=== PATIENT | female | born 1985 | race Caucasian/White ===

== ENCOUNTER → 2017-04-11 | Outpatient (CLI) | payer OTHER ==
[~2017-04-11] MED LIST: FERR18TA; LABE100T23 PO; MTR600X PO; OXYC5TAB PO; PRENTAB26 PO
== END | disposition home or self-care (01) ==
LOC: C.PAPS 10:01
PROVIDERS: ATTEND Obstetrics & Gynecology
DX: Z12.4 Encounter for screening for malignant neoplasm of cervix (principal); Z11.51 Encounter for screening for human papillomavirus (HPV)

== ENCOUNTER → 2017-06-30 | Outpatient (CLI) | payer OTHER ==
[2017-06-30 17:47] LABS: HEMATOCRIT 38.7 % (37-47); HEMOGLOBIN 13.6 g/dL (12.0-16.0); MEAN CELL VOLUME 86.6 fL (80-100); MEAN CORPUSCULAR HEMOGLOBIN 30.4 pg (25-34); MEAN CORPUSCULAR HGB CONC 35.1 g/dl (32-36); MEAN PLATELET VOLUME 9.4 fL (7.4-10.4); PLATELET COUNT 177 K/uL (130-400); RED CELL DISTRIBUTION WIDTH CV 12.6 % (11.5-14.5); RED CELL DISTRIBUTION WIDTH SD 40.3 fL (36.4-46.3); WHITE BLOOD COUNT 5.11 K/uL (4.8-10.8)
[2017-06-30 18:04] LABS: ALBUMIN 4.2 gm/dl (3.4-5.0); BLOOD UREA NITROGEN 10 mg/dl (7-18); CARBON DIOXIDE 26 mmol/L (21-32); CREATININE 0.66 mg/dl (0.60-1.20); GLUCOSE 86 mg/dl (70-99); POTASSIUM 3.3 mmol/L (3.5-5.1); SODIUM 135 mmol/L (136-145)
[2017-06-30 18:05] LABS: PHOSPHORUS 3.1 mg/dl (2.5-4.9)
[2017-06-30 18:54] LABS: BASO ABS # 0.05 K/uL (0-0.2); EOS % 1.8 %; EOS ABS # 0.09 K/uL (0-0.5); IG# 0.01 K/uL (0.00-0.02); LYMPH % 38.4 %; LYMPH ABS # 1.96 K/uL (1.2-3.4); MONO % 16.4 %; MONO ABS # 0.84 K/uL (0.11-0.59); NEUT % 42.2 %; NEUT ABS # 2.16 K/uL (1.4-6.5)
[2017-06-30 19:42] LABS: MONOSPOT NEG (NEG)
== END | disposition home or self-care (01) ==
LOC: C.LAB1850 16:19
PROVIDERS: ATTEND Family Medicine Adult Medicine
DX: I10 Essential (primary) hypertension (principal); J02.9 Acute pharyngitis, unspecified

== ENCOUNTER 2019-03-31 09:57 | Inpatient (IN) ==
[~2019-03-31 09:57] MED LIST changes: +CITRIC ACID/SODIUM CITRATE 15 ML UDC PO SCH; -FERR18TA; -LABE100T23 PO; -MTR600X PO; -OXYC5TAB PO; -PRENTAB26 PO
[2019-03-31] MEDS ORDERED: LACTATED RINGER'S 1,000 ML IV SCH ×2 (10:15→11:15)
--- NOTE | 2019-03-31 10:26 | History & Physical Report ---
Date of Service March 31, 2019 Assessment & Plan (1) Breech presentation: (2) Normal labor: acitve labor. Plan repeat c/s. consent reviewed and signed. Proceed urgently. History of Present Illness Chief Complaint: contractions Primary Care Provider: Shannon Rosen PA-C Belkis is a 33yowf who presents to labor and delivery from the office where she was found to be in labor. she was a scheduled c/s for breech presentation tomorrow. On presentation to labor and delivery she had srom, mec seen. Was 4cm and -2 in the office. complicated by chtn. On labetolol and asa. Weekly monserrat and testing has been reassuring. Previous c/s for breech in 2016. Small septum noted on previous c/s. Patient had a thinner appearing artem on dating us. Was seen by m. Allergies Allergy/AdvReac Type Severity Reaction Status Date / Time No Known Drug Allergies Allergy Verified 03/31/19 09:37 Home Medications Home Medications Medication Instructions Recorded Confirmed Type azelastine 137 mcg (0.1 %) nasal 1 sprays INTRANASAL DAILY PRN #1 ml 09/11/18 03/31/19 History spray aerosol prenat.vits,aneta,ybb-fryx-cacxa 1 tab PO PM 09/11/18 03/31/19 History labetalol 100 mg tablet 50 mg PO BID #60 tab 11/05/18 03/31/19 Rx aspirin [Aspir-81] 81 mg PO PM 03/29/19 03/31/19 History fluticasone propionate 1 sprays INTRANASAL QAM 03/29/19 03/31/19 History Patient History Medical History Allergic rhinitis (Acute) History of spontaneous Hypertension Septate uterus (Acute) Surgical History H/O section (Resolved) Family History Mother Hypertension Essential hypertension Grandmother Type 2 diabetes mellitus Essential hypertension Grandfather Myocardial infarction Colon cancer Aunt Essential hypertension Breast cancer Social History (Updated 10/17/18 @ 15:28 by Marycruz A Sonia) Preferred Language: Kazakh Communication Ability: Effective Experienced Truck Driver Required: No Beliefs That Will Affect Care: None Current Living Situation: Spouse and Family Other Information That Helps Us Care for You: No Feels Safe at Home: Yes Safety Concerns: Feels Safe At This Time Smoking Status: Never smoker Do You Dip or Chew Tobacco: No ; Second Hand Exposure: No ( SMOKES NOT AROUND PATIENT) ; Tobacco Cessation Education Requested by Patient: No Hx Alcohol Use: No Hx Substance Use: No Review of Systems All systems reviewed & are unremarkable except as noted in HPI & below Physical Exam Constitutional: WD/WN, vitals as above Gastrointestinal (Abdomen): soft, gravid, nt Psychiatric: A+Ox3, euthymic affect Genitourinary: cx--4cm in the office toco--q 2 min efm--150s wtih mod variability, accels present, no decels bsus--breech Code Status & VTE Plan VTE Prophylaxis Plan VTE Prophylaxis will be ordered: Yes
--- NOTE | 2019-03-31 10:30 | Anesthesiology Consultation ---
Date of Service March 31, 2019 Assessment & Plan (1) Encounter for pre-operative examination: Chart Review Chart Review: Acceptable Risk for Surgery and Patient NOT seen in Pre Admission Testing Consults Requested none ASA [id number] Proposed Anesthesia Anesthesia Type: Spinal Risk / Benefits Reviewed With: PT / POA / Parent / Guardian, Accepts Plan and Informed Consent Obtained History Surgery Operation Date: 03/31/19 10:15 Proposed Procedures p Section in LD - Benita Nguyen MD, FACOG Operation Date: 04/01/19 07:30 Proposed Procedures p Section - Gary Alfaro MD Height/Weight Height: 5 ft 7 in Weight: 74.843 kg Allergies Allergy/AdvReac Type Severity Reaction Status Date / Time No Known Drug Allergies Allergy Verified 03/31/19 09:37 Medications Home Medications Medication Instructions Recorded Confirmed Last Taken azelastine 137 mcg (0.1 %) nasal 1 sprays INTRANASAL DAILY PRN #1 ml 09/11/18 03/31/19 Unknown spray aerosol prenat.vits,aneta,cff-vyce-ruwqx 1 tab PO PM 09/11/18 03/31/19 Unknown labetalol 100 mg tablet 50 mg PO BID #60 tab 11/05/18 03/31/19 Unknown aspirin [Aspir-81] 81 mg PO PM 03/29/19 03/31/19 Unknown fluticasone propionate 1 sprays INTRANASAL QAM 03/29/19 03/31/19 Unknown NPO Date Last Intake of Fluids: 03/31/19 Time Last Intake of Fluids: 10:27 Date Last Intake of Solids: 03/30/19 Time Last Intake of Solids: 19:30 Past Medical History Medical History Allergic rhinitis (Acute) History of spontaneous Hypertension Septate uterus (Acute) Exercise / Class Metabolic Activity II 4-5 Yardwork/Stairs/Walk up hill Negative for chest pain or shortness of breath. Past Family History Family History Mother Hypertension Essential hypertension Grandmother Type 2 diabetes mellitus Essential hypertension Grandfather Myocardial infarction Colon cancer Aunt Essential hypertension Breast cancer Past Surgical History Surgical History H/O section (Resolved) Past Anesthesia History No Hx of Anesthesia Complications History of PONV No Hx of PONV Social History Smoking Status: Never smoker Do You Dip or Chew Tobacco: No Hx Alcohol Use: No Hx Substance Use: No substance use type: does not use Review of Systems Patient denies history of abnormal bleeding or bleeding disorder. Patient denies active use of anticoagulants other than low dose aspirin. Patient denies numbness, tingling or weakness in lower extremities. Physical Exam Constitutional not obese (Vince uterus) ENMT Mouth: + small oral opening; no TMJ abnormality Thyromental Distance: > or= 3.5 Finger Breadths Mallampati Class: II Neck normal visual inspection; neck extension not limited Respiratory normal respiratory effort, lungs clear to auscultation normal respiratory effort Auscultation: lungs clear to auscultation bilaterally Cardiovascular Rate/Rhythm: regular rate and regular rhythm Heart Sounds: no murmur Neurologic moves all extremities Motor/Sensory: no sensory deficit Psychiatric Orientation: alert and oriented x 3 Testing Laboratory Results lab work pending
[2019-03-31 10:36] LABS: Basophils # (auto) 0.01 K/uL (0-0.2); Basophils % (auto) 0.1 %; Eosinophils # (auto) 0.07 K/uL (0-0.5); Eosinophils % (auto) 0.7 %; Hematocrit (blood only) 35.3 % (37-47); Hemoglobin 12.2 g/dL (12.0-16.0); Immature Granulocytes # (auto) 0.05 K/uL (0.00-0.02); Immature Granulocytes % (auto) 0.5 %; Lymphocytes # (auto) 1.61 K/uL (1.2-3.4); Lymphocytes % (auto) 15.2 %; Mean Corpuscular Hemoglobin 31.8 pg (25-34); Mean Corpuscular Volume 91.9 fL (80-100); Mean Platelet Volume 10.9 fL (7.4-10.4); Monocytes % (auto) 7.6 %; Neutrophils # (auto) 8.04 K/uL (1.4-6.5); Neutrophils % (auto) 75.9 %; Platelet Count 218 K/uL (130-400); RDW Coefficient of Variation 12.4 % (11.5-14.5); RDW Standard Deviation 41.9 fL (36.4-46.3); Red Blood Count 3.84 M/uL (4.2-5.4); White Blood Count 10.58 K/uL (4.8-10.8)
[2019-03-31 10:39] LABS: Mean Corpuscular Hgb Conc 34.6 g/dL (32-36)
[2019-03-31] MEDS ORDERED: PENICILLIN G POTASSIUM 6 MU in DEXTROSE 5% 250 ML IV STA (10:45)
[2019-03-31] MEDS ORDERED: MoRPHine SULFATE PF 1 MG/ML 10 ML AMP/VIAL ONE (10:53)
[2019-03-31] MEDS ORDERED: fentaNYL citrate 100 MCG/2 ML VIAL ONE (10:53)
[2019-03-31] MEDS ORDERED: CEFAZOLIN 2000MG 2,000 MG/15 ML SYR IV SCH (11:00)
[2019-03-31] MEDS ORDERED: OXYTOCIN 10 UNITS/ML VIAL ONE ×2 (11:22→11:24)
[2019-03-31] MEDS ORDERED: CARBOPROST TROMETHAMINE 250 MCG/ML AMPUL ONE (11:22)
[2019-03-31] MEDS ORDERED: ONDANSETRON INJ 2 MG/ML 2 ML VIAL ONE (11:31)
[2019-03-31] MEDS ORDERED: HYDROmorphone INJ 0.5 MG/0.5 ML SYR IV PRN (11:32)
[2019-03-31] MEDS ORDERED: NALOXONE HCL 0.4 MG/1 ML VIAL/CARP IV PRN (11:32)
[2019-03-31] MEDS ORDERED: KETOROLAC 30 MG/ML VIAL IV PRN ×2 (11:32→13:47)
[2019-03-31] MEDS ORDERED: DiphenhydrAMINE HCL 50 MG/ML VIAL IV PRN ×2 (11:32→13:47)
[2019-03-31] MEDS ORDERED: ePHEDrine sulfate 50 MG/ML AMP IV PRN (11:32)
[2019-03-31] MEDS ORDERED: NALBUPHINE HCL INJ 10 MG/ML AMP IV PRN (11:32)
[2019-03-31] MEDS ORDERED: MoRPHine SULFATE PF 1 MG/ML 10 ML AMP/VIAL INT SPINAL ONE (11:32)
[2019-03-31] MEDS ORDERED: ONDANSETRON INJ 2 MG/ML 2 ML VIAL IV PRN (11:32)
[2019-03-31] MEDS ORDERED: LACTATED RINGER'S 500 ML IV PRN (11:32)
[2019-03-31] MEDS ORDERED: NALOXONE HCL 1 MG in SODIUM CHLORIDE 0.9% 1000ML 1,000 ML IV PRN (11:32)
[2019-03-31] MEDS ORDERED: NALOXONE HCL 0.08 MG in SYRINGE 1.8 ML IV PRN (11:32)
[2019-03-31] MEDS ORDERED: ACETAMINOPHEN 1000 MG/100 ML IV IV PRN (11:38)
[2019-03-31] MEDS ORDERED: NO NARCOTICS OR SEDATIVES SCH (11:45)
[2019-03-31] MEDS ORDERED: SODIUM CHLORIDE 0.9% 1000ML 1,000 ML IV SCH (11:45)
--- NOTE | 2019-03-31 12:10 | Post Operative Brief Note ---
PG Immediate Post Op with CF Date of Surgery March 31, 2019 Pre & Post Diagnosis Operation Date: 03/31/19 10:15 Pre-Op Diagnosis: 1. Term Labor 2. Breech 3. Septate Uterus 4. SROM for meconium fluid Post-Op Diagnosis: Same Operation Date: 04/01/19 07:30 <No data on this case meets the specified criteria> I identified the patient and participated in the time-out.: Yes Procedure Operation Date: 03/31/19 10:15 Actual Procedures p Section in LD; Repeat Lower Uterine Transverse Caesarean Section for the of a viable girl at 1117(Bilateral) - Benita Nguyen MD, FACOG Operation Date: 04/01/19 07:30 <No data on this case meets the specified criteria> Surgeon Benita Nguyen MD, FACOG Extruder Operator Helper Sayra Angulo, PGY 1 Estimated Blood Loss 500 Findings Consistent with Post-Op Diagnosis Specimens Specimen Description: 1. Placenta: Hold 2. Cord Blood Obtained Drains Newman Catheter (Newman inserted without difficulty. Patent and draining clear yellow urine. )
[2019-03-31] MEDS ORDERED: CARBOPROST TROMETHAMINE 250 MCG/ML AMPUL IM ONE ×2 (12:17→13:47)
--- NOTE | 2019-03-31 13:00 | Operative Report ---
DATE OF OPERATION: 03/31/2019 PREOPERATIVE DIAGNOSES: 1. Intrauterine at term. 2. Known breech presentation. 3. Labor with spontaneous rupture of membranes. 4. GBS positive. 5. meconium fluid POSTOPERATIVE DIAGNOSES: 1. Intrauterine at term. 2. Known breech presentation. 3. Labor with spontaneous rupture of membranes. 4. 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 5. GBS positive. 6. meconium fluid PROCEDURE: Repeat lower transverse section. SURGEON: Benita Nguyen MD. SKILLED LABORER: Sayra Velazco, PGY-1. ANESTHESIA: Spinal. ESTIMATED BLOOD LOSS: 500 mL. FLUIDS: 500 mL. URINE OUTPUT: 100 mL of clear yellow urine drained from the bladder at the end of the procedure. INDICATIONS: The patient is a 1, para 1-0-1-1, who presented this morning to the office with contractions. She was found to be 4 cm dilated and in active labor. She presented to labor and delivery where she promptly ruptured her bag of membranes for meconium fluid. She had an ultrasound confirming breech presentation. FINDINGS: Viable female infant in leonardo breech presentation. Normal tubes and ovaries bilaterally. A bicornuate appearing uterus with a more dominant right horn. Apgars were 9 and 9 and the weight was 3070 grams. COMPLICATIONS: None. DRAINS: Newman. DISPOSITION: To recovery room in stable condition. DESCRIPTION OF PROCEDURE: The patient was taken to the operating room where she was identified verbally and by bracelet. She was seated on the operating table where a spinal anesthetic was placed after a timeout. She was then placed in dorsal supine position with a leftward tilt. A Newman catheter was placed sterilely. She was prepped and draped in normal sterile fashion. Anesthesia was tested and found to be adequate. Time-out was held, identifying correct patient, procedure, positioning. The patient received Ancef 2 grams preoperatively for prophylactic antibiotics, but unfortunately we were not able to get much of the penicillin to treat her group B strep on board before the baby was delivered. A Pfannenstiel skin incision was made over the previous incision with a knife and taken down to the underlying layer of fascia with the knife. Bleeding was attended to with Bovie electrocautery. The fascia was incised with the knife and taken out laterally with scissors. The superior edge of the fascial incision was grasped, elevated and the underlying layer of rectus muscle was taken off bluntly and with scissors. In a similar fashion, the inferior edge of the fascial incision was grasped, elevating the underlying layer of rectus muscle was taken off bluntly and with scissors. The muscles were already in the midline. The peritoneum was entered bluntly and was stretched. The bladder blade was placed. A bladder flap was created incising the vesicouterine peritoneum with scissors, taken out laterally with scissors and the bladder flap was created digitally. The lower uterine segment was thin, but not particularly excessively thin. A hysterotomy incision was made with the knife and the incision was then stretched with the gas engine operator generators's fingers cephalad and caudad. The gas engine operator generators's hand was placed into the uterus. The buttocks were delivered atraumatically through the uterus and then with fundal pressure, the fetus was delivered and the legs were reduced first one and than the other then the right shoulder and left shoulder were reduced and the head was delivered atraumatically with fundal pressure. The baby was immediately vigorous. The nose and mouth were bulb suctioned. The cord was clamped and cut and the was handed off to waiting pediatricians for drying and attention. Cord blood and gases were obtained. The placenta was manually extracted. The uterus was exteriorized and cleared of all clot and debris with moistened laparotomy sponges. Hysterotomy incision was repaired in 2 layers, the first in a running locked 0 layer of Vicryl and the second in an imbricating layer. Several gdwwig-hb-[id number] sutures were needed in the left corner of the incision for hemostasis, but then hemostasis was noted to be excellent. The uterus did eventually become firm with the use of dilute Pitocin and then intrauterine muscle placement of IM Hemabate. The uterus was reanteriorized. Hemostasis was noted to be excellent. The rectus muscles were reapproximated in midline with 3 interrupted sutures of 0 Vicryl. The fascia was reapproximated starting at the edges meeting in the midline with 0 Vicryl. The subcuticular tissue was copiously irrigated with warm normal saline. Bleeding was attended to with Bovie electrocautery and the skin was then closed with a 4-0 Vicryl in a subcuticular fashion. All sponge, lap and needle counts were correct x2. The patient tolerated the procedure well and was taken to recovery room in stable condition. I attest to the content of the Intraoperative Record and any orders documented therein. Any exceptions are noted below. MTDD
[2019-03-31] MEDS ORDERED: BENZOCAINE 20% AER SPR 82.5 GM CAN EXT PRN (13:47)
[2019-03-31] MEDS ORDERED: OXYCODONE/ACETAMINOPHEN 5mg/325mg TAB PO PRN (13:47)
[2019-03-31] MEDS ORDERED: DIPHTHERIA/TETANUS/PERTUSSIS 0.5 ML SYR/VIAL IM ONE (13:47)
[2019-03-31] MEDS ORDERED: IBUPROFEN 600 MG TAB PO PRN (13:47)
[2019-03-31] MEDS ORDERED: MEPERIDINE HCL 50 MG/ML CARP IV PRN (13:47)
[2019-03-31] MEDS ORDERED: SUPERCREAM 0.870% 15 GM JAR EXT PRN (13:47)
[2019-03-31] MEDS ORDERED: HYDROCORTISONE ACETATE 25 MG SUPP PR PRN (13:47)
[2019-03-31] MEDS ORDERED: OXYTOCIN 20 UNITS in LACTATED RINGER'S 1,000 ML IV SCH (14:00)
--- NOTE | 2019-03-31 15:26 | Anesthesiology Progress Note ---
Date of Service March 31, 2019 Anesthesia Post Procedure Vital Signs Vital Signs: Temp Pulse Pulse Resp BP BP Pulse Ox 03/31/19 14:05 36.7 C 59 L 20 149/90 H 99 03/31/19 14:03 64 100 03/31/19 13:59 59 L 159/93 H 03/31/19 13:58 70 100 03/31/19 13:55 58 L 156/101 H 03/31/19 13:53 66 100 03/31/19 13:48 65 100 03/31/19 13:45 61 153/94 H 03/31/19 13:43 69 100 03/31/19 13:38 67 100 03/31/19 13:35 60 16 157/100 H 99 03/31/19 13:33 73 100 03/31/19 13:28 72 100 03/31/19 13:25 65 163/95 H 03/31/19 13:23 71 100 03/31/19 13:18 73 97 03/31/19 13:15 67 144/94 H 03/31/19 13:13 66 100 03/31/19 13:08 74 149/100 H 98 03/31/19 13:05 36.5 C 80 71 20 150/100 H 149/100 H 99 03/31/19 13:03 77 98 03/31/19 12:59 81 94 03/31/19 12:58 83 99 03/31/19 12:55 80 80 20 146/98 H 149/100 H 99 03/31/19 12:53 80 98 03/31/19 12:48 86 97 03/31/19 12:46 80 20 142/94 H 99 03/31/19 12:45 80 142/94 H 03/31/19 12:43 86 98 03/31/19 12:38 88 98 03/31/19 12:35 89 83 18 152/102 H 142/94 H 99 03/31/19 12:33 84 97 03/31/19 12:28 89 96 03/31/19 12:25 88 88 20 150/98 H 99 03/31/19 12:23 87 97 03/31/19 12:18 72 98 03/31/19 12:15 80 80 20 124/76 99 03/31/19 12:13 86 97 03/31/19 12:08 83 100 03/31/19 12:05 36.4 C L 76 84 18 131/82 124/76 99 03/31/19 10:31 36.8 C 60 22 151/81 H Transfer of Care Handoff Completed per policy Notes Mental Status: alert / awake / arousable and participated in evaluation Nausea / Vomiting: adequately controlled Pain: adequately controlled Airway Patency, RR, SpO2: stable & adequate BP & HR: stable & adequate Hydration State: stable & adequate Neuraxial Anesthesia: was administered and sensory block is resolving Anesthetic Complications: no major complications apparent and Pt Satisfied with anesthetic care
[2019-03-31] MEDS ORDERED: Nursing to Pharmacy Communication ONE (15:56)
[2019-03-31] MEDS ORDERED: LABETALOL HCL 100 MG TAB PO SCH ×2 (16:10→21:00)
[2019-03-31] MEDS: SIMETHICONE 80 MG CHEW PO SCH ×2 (16:15→20:34)
[2019-03-31] MEDS ORDERED: LACTATED RINGER'S 500 ML IV ONE (18:50)
[2019-03-31] MEDS ORDERED: LABETALOL HCL 100 MG TAB PO ONE (18:50)
[2019-03-31] MEDS: DOCUSATE SODIUM 100 MG CAP PO SCH (20:34)
[2019-04-01] MEDS ORDERED: DC INTRASPINAL MORPHINE ONE (05:37)
--- NOTE | 2019-04-01 06:27 | Obstetrical Progress Note ---
Date of Service <Sayra Velazco DO - Last Filed: 04/01/19 07:03> April 01, 2019 Assessment & Plan <Sayra Velazco DO - Last Filed: 04/01/19 07:03> (1) Encounter for care and examination after delivery: 33 yo F POD #1 following delivery at 38w5d for breech delivery in active labor, doing well and without complaints this morning. - POD #1 - Feels well, ambulating well, voiding well. - Will continue routine care. - Blood type O+, Rubella immune. - Following d/c will have f/u in 6 weeks. Subjective <Sayra Velazco DO - Last Filed: 04/01/19 07:03> Ariane is a 33 yo female ; POD # 1 following section delivery at 38.6weeks; doing well this AM; no abdominal cramping/pain; voiding well, passing gas but no BM; tolerating meals overnight, able to ambulate some within the room. Some persistent spotting this morning but improved from yesterday. 24 Hour I/Os: Intake: 2000 Output: 3300 Review of Systems Constitutional: denies fever, chills, sweats, headache Respiratory: denies SOB, difficulty breathing Cardiac: denies CP, chest palpitations, chest pressure Breast: denies breast pain : denies dysuria Physical Exam <Sayra Velazco DO - Last Filed: 04/01/19 07:03> General: patient is alert and oriented, in NAD Cardiac: +S1/S2, no murmurs rubs or gallops Respiratory: lungs CTA b/l, anteriorly and posteriorly, no wheezes rales or rhonchi, no increased work of breathing, symmetric chest rise, no respiratory distress Abdomen: soft, NT, +bowel sounds Uterus: uterine fundus firm, palpable at the level the umbilicus. Incision intact, non-tender, non-erythematous, no weeping from incision site Lower Extremities: no LE edema or swelling, no deep calf pain, Redd's sign negative b/l Results & Data <Sayra Velazco DO - Last Filed: 04/01/19 07:03> Vital Signs (Past 12 Hours) Vital Signs Temp Pulse Resp BP Pulse Ox 04/01/19 05:45 36.8 C 62 18 134/83 04/01/19 05:37 18 98 04/01/19 04:05 18 98 04/01/19 03:30 18 98 04/01/19 02:35 18 98 04/01/19 01:55 16 97 04/01/19 00:05 18 96 03/31/19 23:40 36.7 C 66 16 132/85 98 03/31/19 23:00 18 99 03/31/19 21:39 18 99 03/31/19 20:00 36.9 C 65 18 154/94 H 99 03/31/19 19:07 16 100 03/31/19 18:51 157/95 H Laboratory Results Laboratory Results - last 24 hr 03/31/19 03/31/19 04/01/19 10:25 10:29 06:12 WBC 10.58 12.97 H RBC 3.84 L 3.75 L Hgb 12.2 11.6 L Hct 35.3 L 34.6 L MCV 91.9 92.3 MCH 31.8 30.9 MCHC 34.6 33.5 RDW Std Deviation 41.9 42.3 RDW Coeff of Vidal 12.4 12.5 Plt Count 218 222 MPV 10.9 H 11.0 H Immature Gran % (Auto) 0.5 0.3 Neut % (Auto) 75.9 68.5 Lymph % (Auto) 15.2 21.9 [place] % (Auto) 7.6 8.3 Eos % (Auto) 0.7 0.8 Baso % (Auto) 0.1 0.2 Immature Gran # (Auto) 0.05 H 0.04 H Neut # (Auto) 8.04 H 8.89 H Lymph # (Auto) 1.61 2.84 [place] # (Auto) 0.80 H 1.08 H Eos # (Auto) 0.07 0.10 Baso # (Auto) 0.01 0.02 Blood Type O Positive Antibody Screen NEGATIVE Medications Administered Current Medications Benzocaine (Dermoplast Pain Relieving [place]) 1 appln EXT UD PRN PRN Reason: use on skin as needed Stop: 04/30/19 13:46 Cocaine HCl (Supercream 0.870%) 1 gm EXT UD PRN PRN Reason: hemmorrhoidal inflammation Stop: 04/14/19 13:46 Diphenhydramine HCl (Benadryl Capsule) 25 mg PO QID PRN PRN Reason: Itching Stop: 04/30/19 13:46 Diphenhydramine HCl (Benadryl) 25 mg IV QID PRN PRN Reason: Itching Stop: 04/30/19 13:46 Docusate Sodium (Colace) 100 mg PO DAILY@08,21 [facility] Stop: 04/30/19 20:59 Last Admin: 03/31/19 20:34 Dose: 100 mg Documented by: Hydrocortisone (Anusol Hc) 25 mg AR BID PRN PRN Reason: Hemorrhoids Stop: 04/30/19 13:46 Ibuprofen (Motrin) 600 mg PO Q4H PRN PRN Reason: Pain Stop: 04/30/19 13:46 Ketorolac Tromethamine (Toradol) 30 mg IV Q6H PRN PRN Reason: Pain Stop: 04/05/19 13:46 Labetalol HCl (Normodyne) 100 mg PO BID [facility] Stop: 05/01/19 08:59 Meperidine HCl (Demerol) 50 - 75 mg IV Q4H PRN PRN Reason: Pain Stop: 04/14/19 13:46 Oxycodone/Acetaminophen (Percocet 5mg/325mg) 1 - 2 tab PO Q4H PRN PRN Reason: Pain Stop: 04/14/19 13:46 Prenat Multivit/[place]/Iron/Folic Ac ( Vitamin) 1 tab PO DAILY@08 [facility] Stop: 05/01/19 07:59 Simethicone (Mylicon) 80 mg PO DAILY@08,,, [facility] Stop: 04/30/19 13:46 Last Admin: 03/31/19 20:34 Dose: 80 mg Documented by: <Benita Nguyen MD, FACOG - Last Filed: 04/01/19 07:48> Co-Signing Physician Notes Resident Physician Supervision Note: I interviewed and examined the patient. Discussed with Dr. Velazco and agree with findings and plan as documented in the note. Any exceptions or clarifications are listed here: Doing well. Pressures have been a little elevated to increased to 100mg of labetalol this am. Will monitor closely. Routine PPD1 . Documented By: Benita Nguyen MD, FACOG Resident Activity Tracking <Sayra Velazco, DO - Last Filed: 04/01/19 07:03> Resident Involvement: Resident Care Provided Care Provided: Adult Hospital Medicine
[2019-04-01 06:35] LABS: Basophils # (auto) 0.02 K/uL (0-0.2); Basophils % (auto) 0.2 %; Eosinophils % (auto) 0.8 %; Hematocrit (blood only) 34.6 % (37-47); Hemoglobin 11.6 g/dL (12.0-16.0); Immature Granulocytes # (auto) 0.04 K/uL (0.00-0.02); Immature Granulocytes % (auto) 0.3 %; Lymphocytes # (auto) 2.84 K/uL (1.2-3.4); Lymphocytes % (auto) 21.9 %; Mean Corpuscular Hemoglobin 30.9 pg (25-34); Mean Corpuscular Hgb Conc 33.5 g/dL (32-36); Mean Corpuscular Volume 92.3 fL (80-100); Monocytes # (auto) 1.08 K/uL (0.11-0.59); Monocytes % (auto) 8.3 %; Neutrophils # (auto) 8.89 K/uL (1.4-6.5); Neutrophils % (auto) 68.5 %; Platelet Count 222 K/uL (130-400); RDW Coefficient of Variation 12.5 % (11.5-14.5); RDW Standard Deviation 42.3 fL (36.4-46.3); Red Blood Count 3.75 M/uL (4.2-5.4); White Blood Count 12.97 K/uL (4.8-10.8)
[2019-04-01] MEDS: PRENATAL VITAMIN 1 TAB PO SCH (08:55)
[2019-04-01] MEDS: SIMETHICONE 80 MG CHEW PO SCH ×3 (08:56→23:18)
[2019-04-01] MEDS: DOCUSATE SODIUM 100 MG CAP PO SCH ×2 (08:56→23:18)
[2019-04-01] MEDS ORDERED: LABETALOL HCL 100 MG TAB PO SCH (09:00)
--- NOTE | 2019-04-01 09:09 | Obstetrical Progress Note ---
Date of Service April 01, 2019 Subjective Patient declining to start Labetalol 100mg BID. BPs mostly >150/90 yesterday but improved for the past several checks. Discussed that we can keep at 50mg BID for now but may need to increase if BPs remain elevated. Based on the medication Hx she received 100mg last night in 2 separate 50mg doses. Results & Data Vital Signs (Past 12 Hours) Vital Signs Temp Pulse Resp BP Pulse Ox 04/01/19 05:45 36.8 C 62 18 134/83 04/01/19 05:37 18 98 04/01/19 04:05 18 98 04/01/19 03:30 18 98 04/01/19 02:35 18 98 04/01/19 01:55 16 97 04/01/19 00:05 18 96 03/31/19 23:40 36.7 C 66 16 132/85 98 03/31/19 23:00 18 99 03/31/19 21:39 18 99 PG Care Time/CCT Total # of Minutes Spent Total Time Spent with Patient: Total time spent is greater than 50% in coordination of care (as documented) at patient's floor/unit and/or counseling patient:
[2019-04-01] MEDS: LABETALOL HCL 100 MG TAB PO SCH ×2 (09:56→23:18)
--- NOTE | 2019-04-02 06:10 | Obstetrical Progress Note ---
Date of Service <Sayra Velazco DO - Last Filed: 04/02/19 07:21> April 02, 2019 Assessment & Plan <Sayra Velazco DO - Last Filed: 04/02/19 07:21> (1) Encounter for care and examination after delivery: 33 yo F POD #2 following delivery at 38w5d for breech delivery in active labor, doing well and without complaints this morning. - POD #2 - Feels well, ambulating well, voiding well. - Will continue routine care. - Blood type O+, Rubella immune. - For possible discharge today. - Following d/c will have f/u in 1 week for blood pressure check and for follow up in 6 weeks. - Went over discharge instructions and answered all patient questions. Subjective <Sayra Velazco DO - Last Filed: 04/02/19 07:21> Ariane is a 33 yo female ; POD # 2 following section delivery at 38.5weeks; doing well this AM; no abdominal cramping/pain; voiding well, passing gas but no BM; tolerating meals overnight, able to ambulate some within the room. Desires discharge today. Review of Systems Constitutional: denies fever, chills, sweats, headache Respiratory: denies SOB, difficulty breathing Cardiac: denies CP, chest palpitations, chest pressure Breast: denies breast pain : denies dysuria Physical Exam <Sayra Velazco DO - Last Filed: 04/02/19 07:21> General: patient is alert and oriented, in NAD Cardiac: +S1/S2, no murmurs rubs or gallops Respiratory: lungs CTA b/l, anteriorly and posteriorly, no wheezes rales or rhonchi, no increased work of breathing, symmetric chest rise, no respiratory distress Abdomen: soft, NT, +bowel sounds Uterus: uterine fundus firm, palpable below the level of the umbilicus. Incision intact, non-tender, non-erythematous, no weeping from incision site Lower Extremities: no LE edema or swelling, no deep calf pain, Redd's sign negative b/l Results & Data <Sayra Velazco - Last Filed: 04/02/19 07:21> Vital Signs (Past 12 Hours) Vital Signs Temp Pulse Resp BP Pulse Ox 04/01/19 23:30 36.8 C 71 18 135/83 04/01/19 19:50 36.8 C 76 18 148/88 H 98 Laboratory Results Laboratory Results - last 24 hr 04/02/19 06:15 Hgb 11.0 L Hct 32.8 L Medications Administered Current Medications Benzocaine (Dermoplast Pain Relieving [place]) 1 appln EXT UD PRN PRN Reason: use on skin as needed Stop: 04/30/19 13:46 Cocaine HCl (Supercream 0.870%) 1 gm EXT UD PRN PRN Reason: hemmorrhoidal inflammation Stop: 04/14/19 13:46 Diphenhydramine HCl (Benadryl Capsule) 25 mg PO QID PRN PRN Reason: Itching Stop: 04/30/19 13:46 Diphenhydramine HCl (Benadryl) 25 mg IV QID PRN PRN Reason: Itching Stop: 04/30/19 13:46 Docusate Sodium (Colace) 100 mg PO DAILY@08, [facility] Stop: 04/30/19 20:59 Last Admin: 04/01/19 23:18 Dose: 100 mg Documented by: Hydrocortisone (Anusol Hc) 25 mg [place] BID PRN PRN Reason: Hemorrhoids Stop: 04/30/19 13:46 Ibuprofen (Motrin) 600 mg PO Q4H PRN PRN Reason: Pain Stop: 04/30/19 13:46 Last Admin: 04/01/19 08:56 Dose: 600 mg Documented by: Ketorolac Tromethamine (Toradol) 30 mg IV Q6H PRN PRN Reason: Pain Stop: 04/05/19 13:46 Labetalol HCl (Normodyne) 50 mg PO BID [facility] Stop: 05/01/19 09:21 Last Admin: 04/01/19 23:18 Dose: 50 mg Documented by: Meperidine HCl (Demerol) 50 - 75 mg IV Q4H PRN PRN Reason: Pain Stop: 04/14/19 13:46 Oxycodone/Acetaminophen (Percocet 5mg/325mg) 1 - 2 tab PO Q4H PRN PRN Reason: Pain Stop: 04/14/19 13:46 Prenat Multivit/Rolloff Driver/Iron/Folic Ac ( Vitamin) 1 tab PO DAILY@08 [facility] Stop: 05/01/19 07:59 Last Admin: 04/01/19 08:55 Dose: 1 tab Documented by: Simethicone (Mylicon) 80 mg PO DAILY@08,,, [facility] Stop: 04/30/19 13:46 Last Admin: 04/01/19 23:18 Dose: 80 mg Documented by: <Gary Alfaro MD - Last Filed: 04/02/19 07:36> Co-Signing Physician Notes Patient seen and evaluated and agree with the above findings and plan. Stable for discharge Resident Activity Tracking <Sayra Velazco DO - Last Filed: 04/02/19 07:21> Resident Involvement: Resident Care Provided Care Provided: OB Delivery
[2019-04-02 06:26] LABS: Hematocrit (blood only) 32.8 % (37-47)
[2019-04-02] MEDS: DOCUSATE SODIUM 100 MG CAP PO SCH (09:12)
[2019-04-02] MEDS: SIMETHICONE 80 MG CHEW PO SCH (09:12)
[2019-04-02] MEDS: LABETALOL HCL 100 MG TAB PO SCH (09:12)
[2019-04-02] MEDS: PRENATAL VITAMIN 1 TAB PO SCH (09:12)
== END 2019-04-02 12:10 | disposition home or self-care (01) | DRG 787 ==
LOC: 4S2 10:12 → EDSTATUS 04-01 07:30